=== PATIENT | male | born 1970 | race Caucasian/White ===

== ENCOUNTER 2022-12-10 14:46 | Emergency (ER) | payer OTHER ==
[2022-12-10 15:09] VITALS: BP 123/92; PULSE 68; RESP 18; TEMP 98.1; BMI 28.2
[2022-12-10] MEDS ORDERED: KETOROLAC TROMETHAMINE 30 MG/1 ML VIAL IM ONE (15:57)
[2022-12-10] MEDS ORDERED: LIDOCAINE HCL 2% JELLY 10 ML CARTRIDGE PR ONE (15:58)
[2022-12-10] MEDS ORDERED: HYDROCORTISONE ACETATE 25 MG/SUPP.RECT PR ONE (16:09)
[2022-12-10] MEDS ORDERED: LIDOCAINE HCL 2% JELLY 6 ML TP ONE (16:39)
[2022-12-10] MEDS ORDERED: KETOROLAC TROMETHAMINE 60 MG/2 ML VIAL ONE (16:47)
[2022-12-10 17:03] LABS: BASO % 0.8 % (0-2.0); EOS % 1.1 % (0-4.5); HEMATOCRIT 45.3 % (35.4-49); HEMOGLOBIN 15.4 GM/dL (11.7-16.9); LYMPH % 21.3 % (8-40); MCH 28.8 pg (25.7-33.7); MEAN CELL VOLUME 84.8 fl (80-96); MEAN PLT VOLUME 6.9 fl (7.5-11.1); MONO % 7.7 % (3.8-10.2); NEUT % 69.1 % (42.8-82.8); PLATELET COUNT 340 10^3/uL (134-434); RBC 5.34 M/mm3 (4.00-5.60); RDW 13.5 % (11.9-15.9); WHITE BLOOD COUNT 7.4 K/mm3 (4.0-10.0)
[2022-12-10 18:41] LABS: ALBUMIN 4.3 g/dl (3.4-5.0); BILIRUBIN,TOTAL 0.6 mg/dL (0.2-1); BLOOD UREA NITROGEN 7.7 mg/dL (7-18); CALCIUM 9.2 mg/dL (8.5-10.1); CREATININE 0.9 mg/dL (0.55-1.3); POTASSIUM 4.3 mmol/L (3.5-5.1); TOT PROT 7.3 g/dl (6.4-8.2)
== END 2022-12-10 22:17 | disposition home or self-care (01) ==
LOC: JER 14:46
PROC: 3E0233Z Introduction of Anti-inflammatory into Muscle, Percutaneous Approach (ICD-10-PCS; principal; 2022-12-10)
DX: K62.89 Other specified diseases of anus and rectum (principal); K62.5 Hemorrhage of anus and rectum
CPT/HCPCS: 36415; 72193-TC; 80053; 85025; 99284-25; Q9967